=== PATIENT | female | born 1990 | race African-American/Black ===

== ENCOUNTER 2019-10-20 09:58 | Outpatient (CLI) | payer SELFPAY ==
[2019-10-20 10:43] LABS: APPEARANCE,URINE SLIGHTLY-CLOUDY; BILIRUBIN,URINE NEGATIVE (NEGATIVE); COLOR,URINE YELLOW; GLUCOSE, URINE NEGATIVE (NEGATIVE); KETONES,URINE NEGATIVE (NEGATIVE); LEUKOCYTE ESTERASE,URINE TRACE (NEGATIVE); NITRITE,URINE NEGATIVE (NEGATIVE); PROTEIN,URINE 30 mg/dL (NEGATIVE); URINE SPECIFIC GRAVITY 1.016
[2019-10-20] MEDS ORDERED: HYDROXYZINE PAMOATE 50 MG CAPSULE PO ONE (10:55)
[2019-10-20] MEDS ORDERED: HYDROXYZINE PAMOATE 50 MG CAPSULE ONE (10:59)
[2019-10-20 11:18] LABS: URINE AMPHETAMINES SCREEN NEGATIVE; URINE BARBITURATES SCREEN NEGATIVE; URINE BENZODIAZEPINES SCREEN NEGATIVE; URINE COCAINE SCREEN NEGATIVE; URINE MARIJUANA (THC) SCREEN NEGATIVE; URINE METHADONE SCREEN NEGATIVE; URINE PHENCYCLIDINE SCREEN NEGATIVE
--- NOTE | 2019-10-20 11:19 | Non Stress Test Report ---
Non Stress Test Datetime Report Generated by CPN: 10/20/2019 11:18 DEMOGRAPHIC EGA NST: 40.0 INDICATION Indication for Study (NST) Other: labor check VITAL SIGNS Temperature - NST: 98.5 Pulse - NST: 63 RESP - NST: 18 NBPSYS NST: 119 NBPDIA NST: 68 MONITORING Monitor Explained: Monitor Explained; Test Explained; Patient Verbalized Understanding Time on Monitor: 10/20/2019 10:12 Time off Monitor: 10/20/2019 11:00 NST Duration: 48 NST INTERVENTIONS NST Interventions: PO Hydration Physician Notified NST: N Bar BABY A: [id number] BABY A Movement : Present Contraction Frequency : irreg FHR Baseline : 135 Accelerations : 15X15 Decelerations : None Variability : Moderate 6-25bpm NST Review: Meets Criteria for Reactive NST NST Review and Verified By : Oli See RN NST Results: Reactive NST REPORT Report Trigger: Send Report
== END 2019-10-20 11:19 | disposition home or self-care (01) ==
LOC: LC 09:58
PROVIDERS: ATTEND Obstetrics & Gynecology
DX: O47.1 False labor at or after 37 completed weeks of gestation (principal); Z3A.40 40 weeks gestation of pregnancy
CPT/HCPCS: 59025; 80307; 81005

== ENCOUNTER 2019-10-21 09:46 | Inpatient (IN) | payer BC ==
--- NOTE | 2019-10-21 11:41 | Admission Physical ---
Datetime Report Generated by CPN: 10/21/2019 11:40 CURRENT ADMISSION Hx Assessment: The History has been Reviewed and is Current Chief Complaint: Uterine Contractions Indication for Induction: Not Applicable Admit Impression : Term, Intrauterine ; No Active Labor; Ruptured Membranes Admit Plan: Admit to Unit; Initiate Labor Augmentation Protocol ALLERGIES Medication Allergies: No Medication Allergies: No Known Allergies (10/21/2019) Latex: No Latex Allergies OBSTETRICAL HISTORY EDC: 10/20/2019 00:00 : 1 Para: 0 Term: 0 : 0 SAB: 0 IAB: 0 Livin Gestational Diabetes: Yes Rh Sensitization: No Incompetent Cervix: No DELL: No Infertility: No ART Treatment: No Uterine Anomaly: No IUGR: No Hx Previous C/S: No Macrosomia: No Hx Loss/Stillborn: No PIH: No Hx : No Placenta Previa/Abruption: No Depression/PP Depression: No PTL/PROM: No Post Hemorrhage: No Current Procedures: Ultrasound; NST SEE RECORDS Alcohol: No Marijuana : No Cocaine: No Other Illicit Drugs: No Cigarettes: Never Smoker. [id number] MEDICAL HISTORY Diabetes: Yes Diabetes Type: Gestational Diabetes Blood Transfusion: No Pulmonary Disease (Asthma, TB): No Breast Disease: No Hypertension: Unknown Paving And Surfacing Labourer Surgery: No Heart Disease: No Hosp/Surgery: No Autoimmune Disorder: No Anesthetic Complications: No Kidney Disease: No Abnormal Pap Smear: No Neuro/Epilepsy: No Psychiatric Disorders: No Other Medical Diseases: No Hepatitis/Liver Disease: No Significant Family History: No Varicosities/Phlebitis: No Trauma/Violence : Unknown Thyroid Dysfunction: No INFECTIOUS HISTORY Gonorrhea: No Genital Herpes: Yes Chlamydia: No Tuberculosis: No Syphilis: No Hepatitis: No HIV/AIDS Exposure: No Rash or Viral Illness: No HPV: No PHYSICAL EXAM General: Normal HEENT: Normal Neurologic: Normal Thyroid: Normal Heart: Normal Lungs: Normal Breast: Deferred Back: Normal Abdomen: Normal Genitourinary Exam: Normal Extremities: Normal DTRs: Normal Pelvic Type: Adequate Physical Exam Comments: IUP 40 weeks + GBS Raven Diagnosis? 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
[2019-10-21 12:02] LABS: ABSOLUTE LYMPHOCYTES (AUTO) 1.4 10^3/uL (0.5-4.7); ABSOLUTE MONOCYTES (AUTO) 0.8 10^3/uL (0.1-1.4); ABSOLUTE NEUT (AUTO) 11.3 10^3/uL (1.7-8.2); BASOPHILS % (AUTO) 0.1 % (0-2); EOSINOPHILS % (AUTO) 0.1 % (0-6); HEMATOCRIT 38.2 % (36.0-47.0); HEMOGLOBIN 12.8 g/dL (12.0-15.5); LYMPHOCYTES % (AUTO) 10.1 % (13-45); MEAN CORPUSCULAR HEMOGLOBIN 32.1 pg (27.0-33.4); MEAN CORPUSCULAR HGB CONC 33.5 g/dL (32.0-36.0); MEAN CORPUSCULAR VOLUME 96 fl (80-97); MONOCYTES % (AUTO) 5.8 % (3-13); PLATELET COUNT 336 10^3/uL (150-450); RED BLOOD COUNT 3.99 10^6/uL (3.72-5.28); RED CELL DISTRIBUTION WIDTH 13.9 % (11.5-14.0); SEGMENTED NEUTROPHILS % (AUTO) 83.9 % (42-78); TOTAL CELLS COUNTED % (AUTO) 100 %; WHITE BLOOD COUNT 13.4 10^3/uL (4.0-10.5)
[2019-10-21] MEDS ORDERED: PENICILLIN G-K 5 MILLION UNIT VIAL ONE ×2 (12:07→20:03)
[2019-10-21] MEDS ORDERED: OXYTOCIN 10 UNIT/ML VIAL ONE (12:07)
[2019-10-21] MEDS ORDERED: LIDOCAINE 1% INJ-PF (10 MG/ML) 30 ML SDV ONE (12:08)
[2019-10-21] MEDS ORDERED: MISOPROSTOL 0.2 MG TABLET ONE (12:08)
[2019-10-21] MEDS ORDERED: OXYTOCIN/0.9 % SODIUM CHLORIDE 30 UNIT/500 ML RTUINJ ONE (12:08)
[2019-10-21 12:10] LABS: APPEARANCE,URINE CLOUDY; BILIRUBIN,URINE NEGATIVE (NEGATIVE); COLOR,URINE YELLOW; GLUCOSE, URINE NEGATIVE (NEGATIVE); KETONES,URINE TRACE mg/dL (NEGATIVE); LEUKOCYTE ESTERASE,URINE MODERATE (NEGATIVE); NITRITE,URINE NEGATIVE (NEGATIVE); PROTEIN,URINE 30 mg/dL (NEGATIVE); URINE SPECIFIC GRAVITY 1.017
[2019-10-21] MEDS ORDERED: PENICILLIN G POTASSIUM 5,000,000 UNIT in DEXTROSE 5%-WATER 100 ML IV ONE (12:27)
[2019-10-21 12:32] LABS: URINE AMPHETAMINES SCREEN NEGATIVE; URINE BARBITURATES SCREEN NEGATIVE; URINE BENZODIAZEPINES SCREEN NEGATIVE; URINE COCAINE SCREEN NEGATIVE; URINE MARIJUANA (THC) SCREEN NEGATIVE; URINE METHADONE SCREEN NEGATIVE; URINE PHENCYCLIDINE SCREEN NEGATIVE
[2019-10-21] MEDS: PENICILLIN G POTASSIUM 2,500,000 UNIT in DEXTROSE 5%-WATER 50 ML IV SCH ×2 (15:59→20:23)
--- NOTE | 2019-10-21 17:03 | L&D Progress Notes ---
PROGRESS NOTES Datetime Report Generated by CPN: 10/21/2019 17:02 PROGRESS NOTE Impression: Reassuring Heart Rate Comment: Irregular uc's, Cat 1 strip LAST VAGINAL EXAM-NURSING Nursing Exam Dilitation: 3.0 Nursing Exam Effacement: 100 Nursing Exam Station: -2 Nursing Exam Contractions: talking through contractions FETUS A Monitoring: External US Presentation: Vertex SIGNATURE SIGNATURE: [id number] Assignment: Leida Shafer MD Signature: with User ID: [email or web address] : with User ID: [email or web address]
[2019-10-21] MEDS ORDERED: RINGERS SOLUTION,LACTATED 1,000 ML IV PRN (19:00)
[2019-10-21] MEDS ORDERED: EPHEDRINE SULFATE INJ 50 MG/1 ML AMPULE ONE (20:31)
[2019-10-21] MEDS ORDERED: FENTANYL/BUPIVACAINE/NS/PF 300 MCG/150 ML RTUINJ EPI ONE (20:32)
[2019-10-21] MEDS ORDERED: ROPIVACAINE HCL 0.2% INJ/PF (2 MG/ML) 20 ML SDV ONE (20:32)
[2019-10-22] MEDS ORDERED: OXYTOCIN/0.9 % SODIUM CHLORIDE 30 UNIT/500 ML RTUINJ IV PRN (01:22)
[2019-10-22] MEDS ORDERED: ACETAMINOPHEN WITH CODEINE #3 TABLET PO PRN ×2 (01:22)
[2019-10-22] MEDS ORDERED: NA PHOS,M-B/NA PHOS,DI-BA (ADULT) 133 ML ENEMA PR PRN (01:22)
[2019-10-22] MEDS ORDERED: PROMETHAZINE HCL INJ 25 MG/1 ML VIAL IV PRN (01:22)
[2019-10-22] MEDS ORDERED: PROMETHAZINE HCL 25 MG SUPP.RECT PR PRN (01:22)
[2019-10-22] MEDS ORDERED: ACETAMINOPHEN 650 MG SUPP.RECT PR PRN (01:22)
[2019-10-22] MEDS ORDERED: DIBUCAINE 1% OINTMENT 28 GM TP PRN (01:22)
[2019-10-22] MEDS ORDERED: MEASLES,MUMPS&RUBELLA VACC/PF 0.5 ML VIAL SUBCUT PRN (01:22)
[2019-10-22] MEDS ORDERED: MAGNESIUM HYDROXIDE SUSP 30 ML UDCUP PO PRN (01:22)
[2019-10-22] MEDS ORDERED: PSEUDOEPHEDRINE HCL 30 MG TABLET PO PRN (01:22)
[2019-10-22] MEDS ORDERED: GLYCERIN/WITCH HAZEL LEAF 1 EACH MED..WIPE TP PRN (01:22)
[2019-10-22] MEDS ORDERED: DIPH/PERTUSS(ACELL)/TETANUS VAC/PF 0.5 ML SYR (>=10YO) IM PRN (01:22)
[2019-10-22] MEDS ORDERED: PROMETHAZINE HCL 25 MG TABLET PO PRN (01:22)
[2019-10-22] MEDS ORDERED: DIPHENHYDRAMINE HCL 25 MG CAPSULE PO PRN (01:22)
[2019-10-22] MEDS ORDERED: BENZOCAINE/MENTHOL AEROSOL SPRAY 56 ML TOP PRN (01:22)
--- NOTE | 2019-10-22 02:40 | Delivery Summary ---
Del Sum A-C Datetime Report Generated by CPN: 10/22/2019 02:40 DELIVERY PERSONNEL DELIVERY PERSONNEL: [id number] Delivery Doctor:: Audelia Cline CNM Labor and Delivery Nurse:: Smitha Chapman RN Nursery Nurse:: Wilma Johnson RN MATERNAL INFORMATION Delivery Anesthesia: Epidural Medications After Delivery: Pitocin 30 Units in 500ml NS/D5W Delivery QBL: 100 Maternal Complications: None Provider Comments: viable femal from OA to DARRELL over intact perineum, baby placed on mothers abd, cord clamped and cut after 2 min by FOB, spont delivery of grossly normal intact placenta, 3 VC, cord blood to lab, FFFM, massage and Pitocin, baby and mom remain in recovery in stable condition, plans to breastfeed (Annotations: Data stored by [facility] on behalf of user) LABOR SUMMARY EDC: 10/20/2019 00:00 No. Babies in Womb: 1 Attempted: No Labor Anesthesia: Epidural LABOR INFORMATION Reason for Induction: Not Applicable Onset of Labor: 10/21/2019 16:00 Complete Dilatation: 10/21/2019 23:24 Oxytocin: N/A Group B Beta Strep: Positive Antibiotics # of Doses: 3 Antibiotics Time of Last Dose: 10/21/2019 20:23 Name of Antibiotic Given: Penicilin Steroids Given: None Reason Steroids Not Administered: Not Applicable MEMBRANES Membranes Rupture Method: Spontaneous Rupture of Membranes: 10/21/2019 07:30 Length of Rupture (hr): 17.47 Amniotic Fluid Color: Clear Amniotic Fluid Amount: Small Amniotic Fluid Odor: Normal STAGES OF LABOR Stage 1 hr: 7 Stage 1 min: 24 Stage 2 hr: 1 Stage 2 min: 34 Stage 3 hr: 0 Stage 3 min: 11 Total Time in Labor hr: 9 Total Time in Labor min: 9 VAGINAL DELIVERY Episiotomy: None Laceration #1: None Laceration Extension #1: N/A Laceration Repair: Not Applicable Sponge Count Correct: Vaginal Sweep Performed Sharps Count Correct: N/A BABY A INFORMATION Delivery Date/Time: 10/22/2019 00:58 Method of Delivery: Vaginal Nurse Controlled Delivery: No Born in Route : No : N/A Forceps: N/A Vacuum Extraction: N/A Shoulder Dystocia : No PRESENTATION/POSITION BABY A Presentation: Cephalic Cephalic Presentation: Vertex Vertex Position: Left Occipital Anterior Breech Presentation: N/A PLACENTA INFORMATION BABY A Placenta Delivery Time : 10/22/2019 01:09 Placenta Method of Delivery: Spontaneous Placenta Status: Delivered SCORES BABY A Heart Rate 1 min: >100 bpm Resp Effort 1 min: Good Cry Reflex Irritability 1 min: Cough or Sneeze or Pulls Away Muscle Tone 1 min: Active Motion Color 1 min: Blue/Pale Resuscitation Effort 1 min: Tactile Stimulation SCORE 1 MIN: 8 Heart Rate 5 min: >100 bpm Resp Effort 5 min: Good Cry Reflex Irritability 5 min: Cough or Sneeze or Pulls Away Muscle Tone 5 min: Active Motion Color 5 min: Body Morley, Extremities Blue Resuscitation Effort 5 min: Tactile Stimulation SCORE 5 MIN: 9 INFANT INFORMATION BABY A Gestational Age at Delivery: 40.1 Gestational Status: Full Term- 39- 40.6 Weeks Outcome : Liveborn Condition : Stable Sex: Female IDENTIFICATION BABY A Verification Date/Time: 10/22/2019 01:37 ID Band Number: [id number] Mother's Name Verified: Yes Infant RN Verifying Infant: Isra Chapman, RN/KAshley Rodriguez, RN WEIGHT/LENGTH BABY A Infant Birthweight (gm): 2920 Weight (lb): 6 Weight (oz): 7 Length (in): 19.75 Length (cm): 50.17 CORD INFORMATION BABY A No. Cord Vessels: 3 Nuchal Cord : N/A Cord Blood Taken: Yes-For Eval (Mom's Blood Type - or O+) Infant Suction: None ASSESSMENT BABY A Complications: None Physical Findings at Delivery: Within Normal Limits Infant Respirations: Appears Normal Skin to Skin: Yes Structural Analyst/ALS Called : No Infant Care By: Tayler Green, RN Transferred To: Remains with Mother BABY B INFORMATION : N/A
--- NOTE | 2019-10-22 02:40 | Birth Certificate Data ---
Cert Data Datetime Report Generated by CPN: 10/22/2019 02:40 CERTIFICATE DATA 47a. Care: Yes (10/20/2019 10:00:Merary Sanchez RN) 47b. Date of First Visit: 04/11/2019 00:00 (10/20/2019 10:00:Merary Sanchez RN) 47c. Date of Last Visit: 10/15/2019 00:00 (10/20/2019 10:00:Merary Sanchez RN) 47d. Number of Visits: 16 (10/20/2019 10:00:Merary Sanchez RN) 48a. Number of Prev Live Births: 0 (10/20/2019 10:00:Smitha Chapman RN) 48b. Now Livin (10/20/2019 10:00:Fior Meek RN) 48c. Live Births Now : 0 (10/20/2019 10:00:QS system process) 48e. Losses: 0 (10/20/2019 10:00:Merary Sanchez RN) RISK FACTORS IN THIS 49a. Diabetes: Yes (10/20/2019 10:00:Merary Sanchez RN) Type of Diabetes: Gestational Diabetes (10/20/2019 10:00:Merary Sanchez RN) 49b. Hypertension: Unknown (10/20/2019 10:00:Merary Sanchez RN) 49c. Previous Births: 0 (10/20/2019 10:00:Fior Meek RN) 49d. Stillborns: No (10/20/2019 10:00:Merary Sanchez RN) 49d. IUGR: No (10/20/2019 10:00:Merary Sanchez RN) 49e. Infertility Treatment: No (10/20/2019 10:00:Merary Sanchez RN) 49f. Previous Cesareans: 0 (10/20/2019 10:00:Merary Sanchez RN) Mother's Height 50b. Height Inches: 64 (10/21/2019 11:13:QS system process) Mother's Weight 51a. Pre- Weight (lbs): 211 (10/20/2019 10:00:Merary Sanchez RN) 51b. Weight at Delivery (lbs): 246 (10/21/2019 11:13:QS system process) Infections Present/Treated 53a. Gonorrhea: No (10/20/2019 10:00:Merary Sanchez RN) Results this Hospital Visit : Negative (10/20/2019 10:00:May REMY Meek) 53b. Syphilis: No (10/20/2019 10:00:Merary Sanchez RN) 53c. Chlamydia: No (10/20/2019 10:00:Merary Sanchez RN) Results this Hospital Visit: Negative (10/20/2019 10:00:May REMY Meek) 53d. Hepatitis B: No (10/20/2019 10:00:Merary Sanchez RN) Results this Hospital Visit: Negative (10/20/2019 10:00:May REMY Meek) 53e. Hepatitis C: Negative (10/20/2019 10:00:Merary Sanchez RN) 53h. Mother Tested for HBsAG: Yes (10/20/2019 10:00:Merary Sanchez RN) 53i. Date Tested: 04/11/2019 00:00 (10/20/2019 10:00:Merary Sanchez RN) 53j. Test Result: Negative (10/20/2019 10:00:Fior MeekREMY) Obstetric Procedures 54a, b, c. Obstetric Procedures: Ultrasound; NST (10/20/2019 10:00:Merary Sanchez RN) Onset of Labor 56a. PROM >12 Hrs: 17.47 (10/21/2019 11:30:QS system process) 56b. Precipitous Labor <3 Hrs: 9 (10/20/2019 10:00:QS system process) 56c. Prolonged Labor > 20 Hrs: 9 (10/20/2019 10:00:QS system process) 57a. Induction of Labor: N/A (10/20/2019 10:00:Smitha Chapman RN) 57c. Non-Vertex Presentation A: Vertex (10/20/2019 10:00:Smitha Chapman RN) 57d. Steroids - Lung Mat: None (10/20/2019 10:00:Smitha Chapman RN) 57d. Steroids - Lung Mat: Not Applicable (10/20/2019 10:00:Smitha Chapman RN) 57e. Antibiotics During Labor: 10/21/2019 20:23 (10/20/2019 10:00:Smitha Chapman RN) 57f. Mat [place] or Temp >100.4: 99.2 (10/20/2019 10:00:Smitha Chapman RN) 57g. Moderate/Heavy Meconium: Clear (10/21/2019 11:30:Merary Sanchez RN) 57i. Epidural/Spinal Anesthesia: Epidural (10/20/2019 10:00:Smitha Chapman RN) Method of Delivery 58a. Forceps - Unsuccessful A: N/A (10/20/2019 10:00:Smitha Chapman RN) 58b. Vacuum - Unsuccessful A: N/A (10/20/2019 10:00:Smitha Chapamn RN) 58c. Presentation at 58c. Presentation at - A : Vertex (10/20/2019 10:00:Smitha Chapman RN) 58c. Presentation at - A : N/A (10/20/2019 10:00:Smitha Chapman RN) 58c. Presentation at - A : Cephalic (10/21/2019 22:03:Smitha Chapman RN) Final Route and Method of Del 58d. Baby A Route/Delivery: Vaginal (10/20/2019 10:00:Smitha Chapman RN) 58e. Trial of Labor Attempted: No (10/20/2019 10:00:Smitha Chapman RN) 58e. Trial of Labor Attempted A: N/A (10/20/2019 10:00:Smitha Chapman RN) 58e. Trial of Labor Attempted B: N/A (10/20/2019 10:00:Smitha Chapman RN) Maternal Morbidity 59b. 3rd or 4th Degree Lacs: None (10/20/2019 10:00:Audelia Cline, CNM) Birthweight Baby A: 2920 (10/20/2019 10:00:Nalini Eng RN) 60a. Pounds : 6 (10/20/2019 10:00:QS system process) 60b. Ounces: 7 (10/20/2019 10:00:QS system process) 61. GA at Delivery Baby A: 40.1 (10/20/2019 10:00:Smitha Chapman RN) : Full Term- 39- 40.6 Weeks (10/20/2019 10:00:QS system process) 62a. 5 Minute Baby A: 9 (10/20/2019 10:00:QS system process)
[2019-10-22] MEDS: SENNOSIDES/DOCUSATE 8.6-50 MG 1 EACH TABLET PO SCH (09:53)
[2019-10-22] MEDS: DOCUSATE SODIUM 100 MG CAPSULE PO SCH ×2 (09:53→17:47)
[2019-10-22] MEDS: FAMOTIDINE 20 MG TABLET PO SCH ×2 (09:53→21:23)
[2019-10-22] MEDS: PRENATAL VITAMIN W DHA CAPSULE PO SCH (09:53)
[2019-10-22] MEDS: FERROUS SULFATE 325 MG TABLET PO SCH ×2 (09:53→17:47)
--- NOTE | 2019-10-22 11:48 | PDOC PROGRESS REPORT ---
Subjective-OB Progress Note for:: 10/22/19 Subjective: 29yo G1 now P1 s/p delivery day. Pt ambulating and voiding without difficulty, reports pain well controlled by medication no concerns today. Physical Exam (OB) Vital Signs: Temp Pulse Resp BP Pulse Ox 98.0 F 69 16 136/76 H 10/22/19 09:05 10/22/19 09:05 10/22/19 09:05 10/22/19 09:05 Intake & Output 10/21/19 10/22/19 10/23/19 06:59 06:59 06:59 Weight 111.7 kg - General General Appearance: Appears well In distress: None - Maternal Morbidity 59. Maternal Morbidity (serious complications experinced by the mother associated with labor and delivery: None of the above - Episiotomy/Laceration Site Condition: N/A - Lochia Lochia Amount: Small 10-25 ml - Abdomen Description: Soft Fundal Description: Firm, Midline Fundal Height: u/u - u/2 - Respiratory Respiratory Status: No respiratory distress - Extremities Upper extremity: Normal inspection Lower extremities: Normal inspection - Neurological Cognition: Normal Orientation: AAOx4 - Psychological Associated symptoms: Normal affect, Normal mood Objective-Diagnostic Laboratory: 10/21/19 11:25 10/21/19 10/21/19 10/21/19 09:55 11:25 11:25 WBC 13.4 H RBC 3.99 Hgb 12.8 Hct 38.2 MCV 96 MCH 32.1 MCHC 33.5 RDW 13.9 Plt Count 336 Seg Neutrophils % 83.9 H Urine Color YELLOW Urine Appearance CLOUDY Urine pH 7.0 Ur Specific [place] 1.017 Urine Protein 30 H Urine Glucose (UA) NEGATIVE Urine Ketones TRACE H Urine Blood LARGE H Urine Nitrite NEGATIVE Ur Leukocyte Esterase MODERATE H Blood Type O POSITIVE Antibody Screen NEGATIVE Assessment and Plan(PN) - Assessment and Plan (1) GBS (group B Streptococcus carrier), +RV culture, currently Is this a current diagnosis for this admission?: Yes Plan: delivered (2) Vaginal delivery Is this a current diagnosis for this admission?: Yes Plan: routine pp care - Time Spent with Patient Time with patient: Less than 15 minutes Medications reviewed and adjusted accordingly: Yes - Disposition Anticipated Discharge Disposition: Home, Self Care Anticipated Discharge Timeframe: within 48 hours
[2019-10-22] MEDS: IBUPROFEN 800 MG TABLET PO SCH ×3 (14:04→21:23)
[2019-10-23] MEDS: IBUPROFEN 800 MG TABLET PO SCH ×3 (05:41→21:30)
[2019-10-23 08:44] LABS: HEMATOCRIT 36.6 % (36.0-47.0); HEMOGLOBIN 12.4 g/dL (12.0-15.5); MEAN CORPUSCULAR HEMOGLOBIN 32.7 pg (27.0-33.4); MEAN CORPUSCULAR HGB CONC 33.8 g/dL (32.0-36.0); MEAN CORPUSCULAR VOLUME 97 fl (80-97); PLATELET COUNT 335 10^3/uL (150-450); RED BLOOD COUNT 3.79 10^6/uL (3.72-5.28); RED CELL DISTRIBUTION WIDTH 14.3 % (11.5-14.0); WHITE BLOOD COUNT 14.3 10^3/uL (4.0-10.5)
--- NOTE | 2019-10-23 10:02 | PDOC PROGRESS REPORT ---
Subjective-OB Progress Note for:: 10/23/19 Physical Exam (OB) Vital Signs: Temp Pulse Resp BP Pulse Ox 97.7 F 67 16 128/84 H 100 10/23/19 07:53 10/23/19 07:53 10/23/19 07:53 10/23/19 07:53 10/22/19 20:01 Intake & Output 10/22/19 10/23/19 10/24/19 06:59 06:59 06:59 Intake Total 480 Balance 480 Weight 111.7 kg - PIH/Pre-Eclampsia Clonus: Negative Headache: Absent Epigastric Pain: No Visual Changes: No - Maternal Morbidity 59. Maternal Morbidity (serious complications experinced by the mother associated with labor and delivery: None of the above - Lochia Lochia Amount: Small 10-25 ml Lochia Color: Rubra/Red - Abdomen Description: Tender, Soft, Flat Hernia Present: No Bowel Sounds: Normoactive Flatus Presence: Present Stool: No Fundal Description: Firm, Midline Fundal Height: u/u - u/2 Objective-Diagnostic Laboratory: 10/23/19 08:10 10/23/19 08:10 WBC 14.3 H RBC 3.79 Hgb 12.4 Hct 36.6 MCV 97 MCH 32.7 MCHC 33.8 RDW 14.3 H Plt Count 335 Assessment and Plan(PN) - Time Spent with Patient Time with patient: Less than 15 minutes Medications reviewed and adjusted accordingly: Yes - Disposition Anticipated Discharge Disposition: Home, Self Care Anticipated Discharge Timeframe: within 36 hours
[2019-10-23] MEDS: SENNOSIDES/DOCUSATE 8.6-50 MG 1 EACH TABLET PO SCH (11:33)
[2019-10-23] MEDS: FAMOTIDINE 20 MG TABLET PO SCH ×2 (11:33→21:31)
[2019-10-23] MEDS: DOCUSATE SODIUM 100 MG CAPSULE PO SCH ×2 (11:33→19:42)
[2019-10-23] MEDS: FERROUS SULFATE 325 MG TABLET PO SCH ×2 (11:33→19:43)
[2019-10-23] MEDS: PRENATAL VITAMIN W DHA CAPSULE PO SCH (11:33)
[2019-10-24] MEDS: IBUPROFEN 800 MG TABLET PO SCH ×2 (06:45→15:31)
[2019-10-24] MEDS: FERROUS SULFATE 325 MG TABLET PO SCH (09:52)
[2019-10-24] MEDS: DOCUSATE SODIUM 100 MG CAPSULE PO SCH (09:52)
[2019-10-24] MEDS: FAMOTIDINE 20 MG TABLET PO SCH (09:52)
[2019-10-24] MEDS: PRENATAL VITAMIN W DHA CAPSULE PO SCH (09:52)
[2019-10-24] MEDS: SENNOSIDES/DOCUSATE 8.6-50 MG 1 EACH TABLET PO SCH (09:52)
--- NOTE | 2019-10-24 12:10 | PDOC DISCHARGE SUMMARY ---
Impression - Admit/DC Date/PCP Admission Date/Primary Care Provider: 10/21/19 11:06 SHERIF MENDOZA MD Discharge Date: 10/24/19 - PP day #2. doing well, O+ Rubella immune - Discharge Diagnosis (1) GBS (group B Streptococcus carrier), +RV culture, currently Is this a current diagnosis for this admission?: Yes (2) Herpes Is this a current diagnosis for this admission?: Yes (3) Is this a current diagnosis for this admission?: Yes (4) Vaginal delivery Is this a current diagnosis for this admission?: Yes - Additional Information Resuscitation Status: Full Code Discharge Diet: As Tolerated, Regular Discharge Activity: Activity As Tolerated, No Lifting Over 10 Pounds, Pelvic Rest Referrals: SHERIF MENDOZA MD [Primary Care Provider] - Prescriptions: Ibuprofen [Motrin 800 mg Tablet] 800 mg PO Q8 #60 tablet Home Medications: Pnv No.95/Ferrous Fum/Folic AC [ Caplet] 1 each PO DAILY 10/20/19 Valacyclovir HCl [Valtrex 500 mg Tablet] 500 mg PO BID 10/20/19 Ibuprofen [Motrin 800 mg Tablet] 800 mg PO Q8 #60 tablet 10/24/19 HPI Reason(s) for Admission: Onset of Labor Procedures: Ultrasound Intrapartum Procedure(s): Spontaneous Vaginal Delivery Hospital Course 59. Maternal Morbidity (serious complications experinced by the mother associated with labor and delivery: None of the above Results Laboratory Results: WBC 14.3 10^3/uL (4.0-10.5) H 10/23/19 08:10 RBC 3.79 10^6/uL (3.72-5.28) 10/23/19 08:10 Hgb 12.4 g/dL (12.0-15.5) 10/23/19 08:10 Hct 36.6 % (36.0-47.0) 10/23/19 08:10 MCV 97 fl (80-97) 10/23/19 08:10 MCH 32.7 pg (27.0-33.4) 10/23/19 08:10 MCHC 33.8 g/dL (32.0-36.0) 10/23/19 08:10 RDW 14.3 % (11.5-14.0) H 10/23/19 08:10 Plt Count 335 10^3/uL (150-450) 10/23/19 08:10 Lymph % (Auto) 10.1 % (13-45) L 10/21/19 11:25 Motley % (Auto) 5.8 % (3-13) 10/21/19 11:25 Eos % (Auto) 0.1 % (0-6) 10/21/19 11:25 Baso % (Auto) 0.1 % (0-2) 10/21/19 11:25 Absolute Neuts (auto) 11.3 10^3/uL (1.7-8.2) H 10/21/19 11:25 Absolute Lymphs (auto) 1.4 10^3/uL (0.5-4.7) 10/21/19 11:25 Absolute Monos (auto) 0.8 10^3/uL (0.1-1.4) 10/21/19 11:25 Absolute Eos (auto) 0.0 10^3/uL (0.0-0.6) 10/21/19 11:25 Absolute Basos (auto) 0.0 10^3/uL (0.0-0.2) 10/21/19 11:25 Seg Neutrophils % 83.9 % (42-78) H 10/21/19 11:25 Urine Color YELLOW 10/21/19 09:55 Urine Appearance CLOUDY 10/21/19 09:55 Urine pH 7.0 (5.0-9.0) 10/21/19 09:55 Ur Specific [place] 1.017 10/21/19 09:55 Urine Protein 30 mg/dL (NEGATIVE) H 10/21/19 09:55 Urine Glucose (UA) NEGATIVE mg/dL (NEGATIVE) 10/21/19 09:55 Urine Ketones TRACE mg/dL (NEGATIVE) H 10/21/19 09:55 Urine Blood LARGE (NEGATIVE) H 10/21/19 09:55 Urine Nitrite NEGATIVE (NEGATIVE) 10/21/19 09:55 Urine Bilirubin NEGATIVE (NEGATIVE) 10/21/19 09:55 Urine Urobilinogen 2.0 mg/dL (<2.0) H 10/21/19 09:55 Ur Leukocyte Esterase MODERATE (NEGATIVE) H 10/21/19 09:55 Urine Ascorbic Acid NEGATIVE (NEGATIVE) 10/21/19 09:55 Membranes Rupture POSITIVE (NEGATIVE) H 10/21/19 10:36 Urine Opiates Screen NEGATIVE 10/21/19 09:55 Urine Methadone Screen NEGATIVE 10/21/19 09:55 Ur Barbiturates Screen NEGATIVE 10/21/19 09:55 Ur Phencyclidine Scrn NEGATIVE 10/21/19 09:55 Ur Amphetamines Screen NEGATIVE 10/21/19 09:55 U Benzodiazepines Scrn NEGATIVE 10/21/19 09:55 Urine Cocaine Screen NEGATIVE 10/21/19 09:55 U Marijuana (THC) Screen NEGATIVE 10/21/19 09:55 RPR NONREACTIVE (NONREACTIVE) 10/21/19 11:25 HSV I&II IgM Ab <0.91 RATIO (0.00-0.90) 10/21/19 11:25 HSV II Specific Ab 5.20 index (0.00-0.90) H 10/21/19 11:25 Blood Type O POSITIVE 10/21/19 11:25 Antibody Screen NEGATIVE 10/21/19 11:25 Plan Plan of Treatment: d/c home, f/up with [facility] in 4 wks Time Spent: Less than 30 Minutes
[2019-10-24 14:16] VITALS: BP 129/85
[2019-10-24] MEDS ORDERED: DIPH/PERTUSS(ACELL)/TETANUS VAC/PF 0.5 ML SYR (>=10YO) IM ONE (15:30)
== END 2019-10-24 15:30 | disposition home or self-care (01) | DRG 807 ==
LOC: LC 09:46 → LR 11:06 → 2S 10-22 08:04
PROVIDERS: ADMIT Obstetrics & Gynecology; ATTEND Obstetrics & Gynecology
PROC: 10E0XZZ Delivery of Products of Conception, External Approach (ICD-10-PCS; principal; 2019-10-21)
DX: O99.824 Streptococcus B carrier state complicating childbirth (principal); Z37.0 Single live birth; O24.429 Gestational diabetes mellitus in childbirth, unspecified control; Z3A.40 40 weeks gestation of pregnancy
CPT/HCPCS: 36415; 80307; 81005; 84112; 85025; 85027; 86592; 86695; 86696; 86850; 86900; 86901; 90715; J2540; J2590; J2795; J3010; J3490; J7060